=== PATIENT | female | born 1940 | race Caucasian/White ===

== ENCOUNTER → 2016-10-01 | Outpatient (CLI) | payer OTHER, MEDICAID ==
[~2016-10-01] MED LIST: ATOM80CA PO; BUPR150T73 PO; CALC1SOL2 PO; CHOL10003 PO; DONE10TA30 PO; ESTR2TAB4 PO; HYDR-3307 PO; LACT1CAP40 PO; LEVO1CAP PO; LEVO50TA PO; LIOT5TAB6 PO; MEDR5TAB PO; METH-356 PO; OMEG-133 PO; ONDA4TAB7 PO; PROG100C4 PO; [UNRECOGNIZED DRUG - OTHER] PO; [UNRECOGNIZED DRUG - OTHER] PO
[2016-10-01 14:44] LABS: ASPARTATE AMINO TRANSFERASE 12 U/L (15-37); BLOOD UREA NITROGEN 16 mg/dL (7-18)
== END | disposition home or self-care (01) ==
LOC: STAR 13:29
PROVIDERS: ATTEND Obstetrics & Gynecology
DX: Z01.818 Encounter for other preprocedural examination (principal); N95.0 Postmenopausal bleeding
CPT/HCPCS: 36415; 80053; 81001; 85025; 87086; 93005

== ENCOUNTER 2016-10-16 09:34 | Day surgery (SDC) | payer OTHER, MEDICAID ==
[~2016-10-16] VITALS: Ht 165.1 cm; Wt 57.3 kg
[2016-10-16] MEDS ORDERED: LACTATED RINGERS 1,000 ML IV SCH (09:56)
[2016-10-16 10:00] VITALS: BP 134/80
[2016-10-16] MEDS ORDERED: VASOPRESSIN 20 UNIT/ML, 1ML ONE (11:22)
[2016-10-16] MEDS ORDERED: ONDANSETRON 2MG/ML, 2ML ONE (11:45)
[2016-10-16] MEDS ORDERED: DEXAMETHASONE 4 MG/ML, 1ML ONE (11:45)
[2016-10-16] MEDS ORDERED: PROPOFOL 10 MG/ML, 20ML ONE (11:45)
[2016-10-16] MEDS ORDERED: PROPOFOL 10 MG/ML, 50ML ONE (11:45)
[2016-10-16] MEDS ORDERED: METOCLOPRAMIDE 5 MG/ML, 2ML ONE (11:45)
[2016-10-16] MEDS ORDERED: SILVER NITRATE STICK TP ONE (12:24)
[2016-10-16] MEDS ORDERED: HYDROmorphone 1 MG/ML, 1ML IV PRN (12:30)
[2016-10-16] MEDS ORDERED: METOCLOPRAMIDE 5 MG/ML, 2ML IV PRN (12:30)
[2016-10-16] MEDS ORDERED: OXYcodone 5 MG/5 ML ORAL.SOL UDC PO PRN (12:30)
[2016-10-16] MEDS ORDERED: LABETALOL 5MG/ML, 20ML IV PRN (12:30)
[2016-10-16] MEDS ORDERED: MIDAZOLAM 1 MG/ML, 2ML IV PRN (12:30)
[2016-10-16] MEDS ORDERED: MEPERIDINE/PF 25MG/0.5ML IVPush PRN (12:30)
[2016-10-16] MEDS ORDERED: ONDANSETRON 2MG/ML, 2ML IVPush PRN (12:30)
[2016-10-16] MEDS ORDERED: FENTANYL PF 100 MCG/2ML IV PRN (12:30)
[2016-10-16] MEDS ORDERED: OXYcodone 5 MG/5 ML ORAL.SOL UDC ONE (12:52)
[2016-10-16] MEDS ORDERED: MEPERIDINE/PF 25MG/0.5ML ONE (13:02)
== END 2016-10-16 16:15 | disposition home or self-care (01) ==
LOC: OUT 09:34
PROVIDERS: ATTEND Obstetrics & Gynecology
DX: N95.0 Postmenopausal bleeding (principal); N84.0 Polyp of corpus uteri; E03.9 Hypothyroidism, unspecified
CPT/HCPCS: 58558; 88304; 88305; J1100; J2175; J2250; J2405; J2704; J2765; J3010; J7120

== ENCOUNTER → 2017-01-09 | Outpatient (CLI) | payer OTHER, MEDICAID ==
[~2017-01-09] MED LIST changes: -DONE10TA30 PO; +DONE10TA56 PO; +LIOT5TAB10 PO; -LIOT5TAB6 PO; +PROG100C16 PO; -PROG100C4 PO
== END | disposition home or self-care (01) ==
LOC: CFH 12:30
PROVIDERS: ATTEND Obstetrics & Gynecology
DX: N85.2 Hypertrophy of uterus (principal); K57.30 Diverticulosis of large intestine without perforation or abscess without bleeding; M47.897 Other spondylosis, lumbosacral region
CPT/HCPCS: 72192

== ENCOUNTER 2019-02-18 12:36 | Outpatient (CLI) | payer MEDICARE, MEDICAID ==
[~2019-02-18 12:36] MED LIST changes: -HYDR-3307 PO; +HYDR-36 PO; -METH-356 PO; +METH10TA2 PO
== END 2019-02-18 23:59 | disposition home or self-care (01) ==
LOC: LAB 12:36
PROVIDERS: ATTEND Internal Medicine Endocrinology, Diabetes & Metabolism
DX: Z02.9 Encounter for administrative examinations, unspecified (principal)

== ENCOUNTER 2019-04-12 12:14 | Outpatient (CLI) | payer MEDICARE, MEDICAID ==
[2019-04-12 12:59] LABS: ALANINE AMINOTRANSFERASE 30 U/L (12-78); ALBUMIN 3.6 g/dL (3.4-5.0); ANION GAP 6 mmol/L (5-15); CHLORIDE 112 mmol/L (98-107); CREATININE 0.91 mg/dL (0.55-1.02)
[2019-04-12 13:01] LABS: ALKALINE PHOSPHATASE 108 U/L (45-117); BILIRUBIN,TOTAL 0.6 mg/dL (0.2-1.0); TOTAL PROTEIN 6.7 g/dL (6.4-8.2)
== END 2019-04-12 23:59 | disposition home or self-care (01) ==
LOC: LAB 12:14
PROVIDERS: ATTEND Internal Medicine Endocrinology, Diabetes & Metabolism
DX: M81.0 Age-related osteoporosis without current pathological fracture (principal); E03.9 Hypothyroidism, unspecified; G47.00 Insomnia, unspecified; M15.9 Polyosteoarthritis, unspecified; M81.8 Other osteoporosis without current pathological fracture; R10.9 Unspecified abdominal pain; R53.83 Other fatigue
CPT/HCPCS: 36415; 80053; 82310; 82570; 83945; 83970; 84100; 84105; 84133; 84300

== ENCOUNTER → 2019-05-12 | Outpatient (CLI) | payer MEDICARE, MEDICAID ==
[~2019-05-12] MED LIST changes: +OMNIPAQUE 350 MG/ML, 100ML BOTTLE ONE
== END | disposition home or self-care (01) ==
LOC: CFH 13:11
PROVIDERS: ATTEND Specialist
DX: K76.89 Other specified diseases of liver (principal); K57.30 Diverticulosis of large intestine without perforation or abscess without bleeding; M47.9 Spondylosis, unspecified; M41.9 Scoliosis, unspecified
CPT/HCPCS: 74177; Q9967

== ENCOUNTER → 2019-06-08 | Outpatient (CLI) | payer MEDICARE, MEDICAID ==
[~2019-06-08] MED LIST changes: -OMNIPAQUE 350 MG/ML, 100ML BOTTLE ONE
[2019-06-08 13:11] LABS: CHLORIDE 107 mmol/L (98-107)
[2019-06-08 13:19] LABS: CREATININE,URINE RANDOM 56.9 mg/dL
[2019-06-08 13:21] LABS: ALANINE AMINOTRANSFERASE 25 U/L (12-78); ALBUMIN 3.8 g/dL (3.4-5.0); ALKALINE PHOSPHATASE 111 U/L (45-117); ANION GAP 8 mmol/L (5-15); BILIRUBIN,TOTAL 0.6 mg/dL (0.2-1.0); CALCIUM 9.2 mg/dL (8.5-10.1); CREATININE 0.83 mg/dL (0.55-1.02)
== END | disposition home or self-care (01) ==
LOC: LAB 12:31
PROVIDERS: ATTEND Internal Medicine Endocrinology, Diabetes & Metabolism
DX: M81.0 Age-related osteoporosis without current pathological fracture (principal); M81.8 Other osteoporosis without current pathological fracture; G47.00 Insomnia, unspecified; E03.9 Hypothyroidism, unspecified; M15.9 Polyosteoarthritis, unspecified; R10.9 Unspecified abdominal pain
CPT/HCPCS: 36415; 80053; 82310; 82570; 83945; 84100; 84105

== ENCOUNTER → 2020-03-14 | Outpatient (CLI) | payer MEDICARE, MEDICAID ==
[~2020-03-14] MED LIST changes: +HYDR-3246 PO; -HYDR-36 PO
[2020-03-14 11:40] LABS: ALANINE AMINOTRANSFERASE 34 U/L (12-78); ALBUMIN 3.4 g/dL (3.4-5.0); ANION GAP 6 mmol/L (5-15); CALCIUM 9.2 mg/dL (8.5-10.1); CHLORIDE 114 mmol/L (98-107)
[2020-03-14 11:43] LABS: ALKALINE PHOSPHATASE 147 U/L (45-117); BILIRUBIN,TOTAL 0.6 mg/dL (0.2-1.0); TOTAL PROTEIN 6.8 g/dL (6.4-8.2)
== END | disposition home or self-care (01) ==
LOC: LAB 11:00
PROVIDERS: ATTEND Internal Medicine Endocrinology, Diabetes & Metabolism
DX: E03.9 Hypothyroidism, unspecified (principal); R10.9 Unspecified abdominal pain; E88.9 Metabolic disorder, unspecified; R53.83 Other fatigue; G47.00 Insomnia, unspecified
CPT/HCPCS: 36415; 80053; 82570; 83945

== ENCOUNTER → 2020-04-13 | Outpatient (CLI) | payer MEDICARE, MEDICAID | END | disposition home or self-care (01) | LOC: CFH 11:41 | PROVIDERS: ATTEND Pain Medicine Interventional Pain Medicine | DX: M50.23 Other cervical disc displacement, cervicothoracic region (principal); M25.78 Osteophyte, vertebrae; G95.89 Other specified diseases of spinal cord | CPT/HCPCS: 72040 ==

== ENCOUNTER → 2020-05-19 | Outpatient (CLI) | payer MEDICARE, MEDICAID ==
[~2020-05-19] MED LIST changes: -HYDR-3246 PO; +HYDR-3248 PO
[2020-05-19 12:57] LABS: ALANINE AMINOTRANSFERASE 33 U/L (12-78); ALBUMIN 3.4 g/dL (3.4-5.0); ANION GAP 8 mmol/L (5-15); CALCIUM 8.9 mg/dL (8.5-10.1); CHLORIDE 111 mmol/L (98-107); CREATININE 0.57 mg/dL (0.55-1.02)
[2020-05-19 12:59] LABS: ALKALINE PHOSPHATASE 144 U/L (45-117); BILIRUBIN,TOTAL 0.7 mg/dL (0.2-1.0); TOTAL PROTEIN 6.3 g/dL (6.4-8.2)
== END | disposition home or self-care (01) ==
LOC: LAB 12:07
PROVIDERS: ATTEND Internal Medicine Endocrinology, Diabetes & Metabolism
DX: M81.8 Other osteoporosis without current pathological fracture (principal); E03.9 Hypothyroidism, unspecified; E88.9 Metabolic disorder, unspecified; R10.9 Unspecified abdominal pain; R53.83 Other fatigue; M81.0 Age-related osteoporosis without current pathological fracture
CPT/HCPCS: 36415; 80053; 82310; 82570; 83970; 84100; 84105; 84133; 84300; 84305

== ENCOUNTER → 2020-06-15 | Outpatient (CLI) | payer MEDICARE, MEDICAID ==
[~2020-06-15] MED LIST changes: +APIX5TAB PO; +METO25TA35 PO
[2020-06-15 13:36] LABS: BASOPHILS % (AUTO) 1 % (0-1); EOSINOPHILS % (AUTO) 1 % (1-7); LYMPHOCYTES % (AUTO) 22 % (22-44); MEAN CORPUSCULAR HEMOGLOBIN 29.3 pg (27.0-34.8); MEAN CORPUSCULAR HGB CONC 33.5 g/dL (32.4-35.8); MEAN PLATELET VOLUME 9.2 fL (7.4-10.4); MONOCYTES % (AUTO) 5 % (2-9); NEUTROPHILS % (AUTO) 71 % (42-75); PLATELET COUNT 246 x10^3/uL (130-400); RED BLOOD COUNT 5.46 x10^6/uL (3.82-5.3); RED CELL DISTRIBUTION WIDTH 16.1 % (9.6-15.2)
[2020-06-15 13:38] LABS: ALANINE AMINOTRANSFERASE 47 U/L (12-78); ALBUMIN 4.1 g/dL (3.4-5.0); ANION GAP 6 mmol/L (5-15); CHLORIDE 104 mmol/L (98-107); MD NO
[2020-06-15 13:42] LABS: CREATININE,URINE RANDOM 36.8 mg/dL
[2020-06-15 13:47] LABS: ALKALINE PHOSPHATASE 159 U/L (45-117); BILIRUBIN,TOTAL 0.7 mg/dL (0.2-1.0); CREATININE 1.14 mg/dL (0.55-1.02); FREE T4 (FREE THYROXINE) 0.45 ng/dL (0.76-1.46)
== END | disposition home or self-care (01) ==
LOC: LAB 12:40
PROVIDERS: ATTEND Internal Medicine
DX: M81.0 Age-related osteoporosis without current pathological fracture (principal); E03.9 Hypothyroidism, unspecified; E88.9 Metabolic disorder, unspecified; G47.00 Insomnia, unspecified; M15.9 Polyosteoarthritis, unspecified; M81.8 Other osteoporosis without current pathological fracture; R10.9 Unspecified abdominal pain; R53.83 Other fatigue
CPT/HCPCS: 36415; 80053; 82088; 82163; 82306; 82310; 82570; 82652; 83945; 84100; 84105; 84305; 84439; 84443; 84481; 85025

== ENCOUNTER 2020-07-20 05:52 | Day surgery (SDC) | payer MEDICARE, MEDICAID ==
[~2020-07-20] VITALS: Ht 161.3 cm; Wt 50.5 kg
[2020-07-20 06:29] VITALS: BP 140/91
[2020-07-20] MEDS ORDERED: DICL100G19 TP (06:39)
[2020-07-20] MEDS ORDERED: AMPH30TA2 PO (06:39)
[2020-07-20] MEDS ORDERED: OXYC10TA6 PO (06:39)
[2020-07-20] MEDS ORDERED: LEVO50TA PO (06:39)
[2020-07-20] MEDS ORDERED: CARV3.1212 PO (06:39)
[2020-07-20 06:46] LABS: ANION GAP 7 mmol/L (5-15); CALCIUM 9.3 mg/dL (8.5-10.1); CHLORIDE 108 mmol/L (98-107); CREATININE 0.97 mg/dL (0.55-1.02)
[2020-07-20] MEDS ORDERED: PROPOFOL 10 MG/ML, 20ML ONE (07:05)
== END 2020-07-20 08:16 | disposition home or self-care (01) ==
LOC: CACL 05:52
PROVIDERS: ATTEND Internal Medicine Cardiovascular Disease
DX: I48.91 Unspecified atrial fibrillation (principal); E03.9 Hypothyroidism, unspecified; Z79.01 Long term (current) use of anticoagulants; Z79.890 Hormone replacement therapy; Z79.891 Long term (current) use of opiate analgesic; Z79.899 Other long term (current) drug therapy; Z88.0 Allergy status to penicillin; Z88.2 Allergy status to sulfonamides; Z88.8 Allergy status to other drugs, medicaments and biological substances
CPT/HCPCS: 36415; 80048; 92960; 93005; J2704

== ENCOUNTER 2020-12-20 12:11 | Outpatient (CLI) | payer MEDICARE, MEDICAID ==
[~2020-12-20 12:11] MED LIST changes: +AMPH30TA2 PO; +CARV3.1212 PO; +DICL100G19 TP; -LACT1CAP40 PO; +LACT1CAP45 PO; +OXYC10TA6 PO
[2020-12-20 12:41] LABS: CREATININE,URINE RANDOM 16.4 mg/dL
[2020-12-20 12:42] LABS: ALANINE AMINOTRANSFERASE 20 U/L (12-78); ALBUMIN 3.3 g/dL (3.4-5.0); ANION GAP 6 mmol/L (5-15); CALCIUM 8.8 mg/dL (8.5-10.1); CHLORIDE 103 mmol/L (98-107); CREATININE 0.78 mg/dL (0.55-1.02)
[2020-12-20 12:51] LABS: ALKALINE PHOSPHATASE 105 U/L (45-117); BILIRUBIN,TOTAL 0.7 mg/dL (0.2-1.0); FREE T4 (FREE THYROXINE) 0.54 ng/dL (0.76-1.46); TOTAL PROTEIN 6.9 g/dL (6.4-8.2)
== END 2020-12-20 23:59 | disposition home or self-care (01) ==
LOC: LAB 12:11
PROVIDERS: ATTEND Internal Medicine Endocrinology, Diabetes & Metabolism
DX: M81.0 Age-related osteoporosis without current pathological fracture (principal); R10.9 Unspecified abdominal pain; E03.9 Hypothyroidism, unspecified; G47.00 Insomnia, unspecified; M15.9 Polyosteoarthritis, unspecified
CPT/HCPCS: 36415; 80053; 82310; 82570; 83970; 84100; 84105; 84133; 84300; 84439; 84443; 84481